=== PATIENT | female | born 1980 | race Caucasian/White ===

== ENCOUNTER 2025-07-17 15:50 | Outpatient (CLI) | payer OTHER, SELFPAY ==
--- NOTE | 2025-07-17 16:00 | CRLHL7_ITS ---
For Patients: As a result of the Century Cures Act, medical imaging exams and procedure reports are released immediately into your electronic medical record. You may view this report before your referring provider. If you have questions, please contact your health care provider. INDICATION: Leg pain and swelling. TECHNIQUE: Ultrasound venous duplex lower right extremity. Compression venous exam was performed using anderson-scale, color Doppler, and spectral Doppler analysis. COMPARISON: None. FINDINGS: Deep veins: Sonographic imaging demonstrates the right common femoral, deep femoral, superficial femoral, popliteal, posterior tibial and the contralateral common femoral veins to be fully compressible with normal color Doppler blood flow. Superficial veins: Greater saphenous vein is fully compressible. Small 1.4 centimeter fluid collection in the popliteal fossa. IMPRESSION: No right lower extremity DVT. Small 1.4 centimeter fluid collection in the popliteal fossa. Dictated by Edmond Velasquez MD @ 07/17/2025 4:45:33 PM (Electronically Signed)
== END 2025-07-17 15:51 | disposition home or self-care (01) ==
LOC: US 15:50
PROVIDERS: PCP Student in an Organized Health Care Education/Training Program; Visit Provider Internal Medicine Hematology & Oncology
DX: M79.604 Pain in right leg (principal); C50.919 Malignant neoplasm of unspecified site of unspecified female breast; C50.811 Malignant neoplasm of overlapping sites of right female breast
CPT/HCPCS: 93971